=== PATIENT | male | born 1985 | race African-American/Black ===

== ENCOUNTER 2017-03-29 09:25 | Emergency (ER) | payer MEDICAID | END 2017-03-29 10:10 | disposition home or self-care (01) | LOC: D.ER 09:25 | DX: R20.0 Anesthesia of skin (principal) ==

== ENCOUNTER 2018-05-15 04:47 | Emergency (ER) | payer SELFPAY ==
[~2018-05-15] VITALS: Ht 182.9 cm; Wt 96.4 kg
[2018-05-15 04:53] VITALS: Ht 182.9 cm; Wt 96.4 kg
[2018-05-15 05:44] LABS: APPEARANCE CLEAR (CLEAR); BILIRUBIN NEGATIVE (NEGATIVE); COLOR YELLOW (YELLOW); GLUCOSE NEGATIVE (NEGATIVE); KETONE NEGATIVE (NEGATIVE); NITRITE NEGATIVE (NEGATIVE); PROTEIN 1+ mg/dL (NEGATIVE); UROBILINOGEN NORMAL (NORMAL)
[2018-05-15 05:45] LABS: BACTERIA MODERATE /hpf (NONE SEEN); EPITHELIAL CELLS 0-5 /hpf (0-5); MUCUS <1+ /lpf (NONE SEEN); RED CELLS - URINE 0-5 /hpf (0-5)
[2018-05-15] MEDS ORDERED: BACTRIM DS TABL1 TAB PO (05:50)
[2018-05-15 06:00] VITALS: BP 124/76
== END 2018-05-15 06:01 | disposition home or self-care (01) ==
LOC: D.ER 04:47
PROVIDERS: Emergency Medicine
DX: N39.0 Urinary tract infection, site not specified (principal); R30.0 Dysuria; M54.5 Low back pain

== ENCOUNTER 2018-11-10 10:34 | Emergency (ER) | payer SELFPAY ==
[~2018-11-10] VITALS: Ht 182.9 cm; Wt 90.9 kg
[~2018-11-10 10:34] MED LIST: BACTRIM DS TABL1 TAB PO
[2018-11-10 10:40] VITALS: Ht 182.9 cm; Wt 90.9 kg
[2018-11-10 11:29] LABS: APPEARANCE HAZY (CLEAR); BILIRUBIN NEGATIVE (NEGATIVE); COLOR YELLOW (YELLOW); GLUCOSE NEGATIVE (NEGATIVE); KETONE NEGATIVE (NEGATIVE); NITRITE NEGATIVE (NEGATIVE); PROTEIN NEGATIVE (NEGATIVE); UROBILINOGEN NORMAL (NORMAL)
[2018-11-10] MEDS ORDERED: MEDROL DOSE PACK4 MG PO (11:29)
[2018-11-10] MEDS ORDERED: CYCLOBENZAPRINE10 MG PO (11:29)
[2018-11-10 11:32] LABS: BACTERIA FEW /hpf (NONE SEEN); EPITHELIAL CELLS 0-5 /hpf (0-5); RED CELLS - URINE RARE /hpf (0-5); WHITE CELLS - URINE 25-50 /hpf (0-5)
[2018-11-10] MEDS ORDERED: SULFAMETHOXAZOL1 TA3 PO (11:51)
[2018-11-10 12:39] VITALS: BP 128/73
== END 2018-11-10 12:40 | disposition home or self-care (01) ==
LOC: D.ER 10:34
PROVIDERS: Family Medicine
DX: S29.012A Strain of muscle and tendon of back wall of thorax, initial encounter (principal); S21.90XA Unspecified open wound of unspecified part of thorax, initial encounter; X58.XXXA Exposure to other specified factors, initial encounter; Y93.89 Activity, other specified; Y92.89 Other specified places as the place of occurrence of the external cause; N39.0 Urinary tract infection, site not specified

== ENCOUNTER 2019-07-08 17:10 | Emergency (ER) | payer MEDICAID ==
[~2019-07-08] VITALS: Ht 182.9 cm; Wt 96.4 kg
[~2019-07-08 17:10] MED LIST changes: +CYCLOBENZAPRINE10 MG PO; +MEDROL DOSE PACK4 MG PO; +SULFAMETHOXAZOL1 TA3 PO
[2019-07-08 17:15] VITALS: Ht 182.9 cm; Wt 96.4 kg
[2019-07-08] MEDS ORDERED: NAPROSYN500 MG PO (18:06)
[2019-07-08 18:51] VITALS: BP 130/80
== END 2019-07-08 18:51 | disposition home or self-care (01) ==
LOC: D.ER 17:10
DX: S69.92XA Unspecified injury of left wrist, hand and finger(s), initial encounter (principal); W23.0XXA Caught, crushed, jammed, or pinched between moving objects, initial encounter; F17.210 Nicotine dependence, cigarettes, uncomplicated